=== PATIENT | female | born 1975 | race Caucasian/White ===

== ENCOUNTER 2025-01-26 16:30 | Inpatient (IN) | payer OTHER, SELFPAY ==
[2025-01-26] VITALS (57 sets, daily range): BP systolic 85–148; BP diastolic 55–93; BMI 26.9
--- NOTE | 2025-01-26 15:27 | ED.CVA ---
History of Present Illness
General
Chief Complaint: CVA/TIA Symptoms
Source: patient
Exam Limitations: none
Time Seen by Provider: 01/26/25 15:23
Nursing documentation reviewed up to this point in time: agreed with
Onset of Stroke Symptoms
Onset of symptoms known: Yes
Date of onset of symptoms: 01/26/25
Time of onset of symptoms: 14:30
History of Present Illness
History of Present Illness:
Patient with history of migraine headache, presents to ED from work, secondary to sudden onset of difficulty finding words, along with tingling sensation. Denies headache. Denies dizziness. Denies loss of sensation or weakness. Denies difficulty
with swallowing. Patient denies previous history of similar symptoms. Denies recent illness. Denies recent change in medications or diet.
Review of Systems
Review of Systems
Allergies reviewed?: Yes
All Other Systems: ROS reviewed and negative except as documented in HPI and ROS
Constitutional: Reports no symptoms
Respiratory: Reports no symptoms
Cardiac: Reports no symptoms
ABD/GI: Reports no symptoms
Musculoskeletal: Reports no symptoms
Skin: Reports no symptoms
Neurological: Reports other (Word finding difficulty)
Phy Exam
Physical Exam
Physical Exam:
Physical Exam
General: mild distress, not acutely ill. afebrile
Head: nc/at. eomi
Neck: supple. no meningeal signs.
Heart: s1/s2 regular rate and rhythm, no murmur.
Lungs: no acute respiratory distress. clear bilaterally
Abdomen: normal bowel sounds. not tender.
Neuro: alert and oriented x 3. no focal sensory/motor deficit. clear speech, but delayed
Skin: no rash
Psychiatric: well kept. interactive and cooperative
Extremities: no edema.
Course
Orders/Labs/Results
Orders:
Orders
01/26/25 15:14
CT HEAD STROKE ALERT W/o Cont Urgent
Comment:
Reason For Exam: expressive asphasia
CT HEAD/NECK ANG STROKE ALERT Urgent
Comment:
Reason For Exam: expressive asphasia
01/26/25 15:23
Electrocardiogram (*1) Urgent
Reason for Study: TIA/Stroke
EKG- Treatment ONCE
01/26/25 15:24
NEUROLOGY CONSULT Urgent
Consulting Provider: Rolf Draper
Was physician already notified: Yes
Reason for consult: expressive aphasia
01/26/25 15:25
Tenecteplase [Tnkase] 20 mg Syringe [Syringe Non-Pump] 0 ml IV NOW
01/26/25 15:41
Complete Blood Count/With Diff Urgent
Comprehensive Metabolic Panel Urgent
Creatine Phosphokinase Urgent
Glycohemoglobin (HgbA1c) Urgent
Magnesium Urgent
TSH Urgent
01/26/25 15:58
Admit/Transfer Patient As Directed
Co-Sign Provider:
Level of Care: Inpatient admission
Assign to:: ICU
Physician / Group: Luis Antonio
Diagnosis: Expressive Aphasia
Reason for Hospitalization: TNK
Expected length of stay greater than two midnights?: Yes
ELOS- Estimated Length of Stay in days: 3
I certify the patient meets the requirements for IP care: Yes
01/26/25 15:59
Code Status As Directed
Resuscitation Status: Full Code
01/26/25 16:02
CR Chest - 2 Views Urgent
Comment:
Reason For Exam: stroke/TIA
01/26/25 16:08
Lorazepam [Ativan] 0.5 mg IV NOW STA
01/26/25 16:17
Add On- LAB Urgent
Tests Added?: CPK
01/26/25 16:32
Acetaminophen [Tylenol] 650 mg PO Q4HPRN PRN
01/26/25 16:32
Echo 2D MMode Color/Doppler Routine
Reason for Study: stroke/TIA
Electrocardiogram (*1) Routine
Reason for Study: TIA/Stroke
Case Management Consult Once
Case Management Consult: Discharge Planning
DIETARY IP CONSULT Routine
Reason for Consult: stroke/TIA
Fruit Thinner Consult Routine
Consulting Provider: Joie Cordova
Was physician already notified: Yes
Captain/Check Airman Urgent
MR Brain Without Contrast Routine
Comment: complete 24 hrs post tenecteplase administration
Reason For Exam: possible stroke, status post tenecteplase
Recent pill cam endoscopy?: No
Hemetest Stools As Directed
Comment: hemoccult all stools if patient received tenecteplase
NIH Stroke Scale As Directed
Directions: Other
Comment: NIH stroke Scale to be completed prior to thrombolytic administration, then every 1 hour for 2
hours, then every shift and with change in condition and/or mental status.
Neurological Checks As Directed
Frequency: Per unit guidelines
Additional Instructions:: after start of thrombolytic therapy:
q15min x 2 hrs, q30min x 6 hrs, q1h x 16 hrs, q4h x 24 hrs, then every shift and
with any changes.
Notify MD As Directed
Notify physician if: - Any deterioration, change in neurological status, development of severe headache,
nausea and vomiting, or with any signs of bleeding. (see guidelines for suspected
intracerebral hemorrhage).
- If intracranial hemorrhage is suspected or confirmed by imaging, anticipate need for
osmotic diuretic to maintain euvolemia.
Notify MD As Directed
Notify physician if: Glucose less than 70 or greater than 180.
Anticipate corrective insulin orders.
Notify MD As Directed
Notify physician if: unable to obtain MRI of head within 22-32 hours of tenecteplase administration
- contact Neurology for order for CT of head without contrast
Patient Education As Directed
Type: Stroke education packet
Comment: provide to patient and family
Pneumatic Compression Sleeves As Directed
Type: Knee high
Precautions As Directed
Type of Precautions: Bleeding
Comment: post Bleeding Precaution sign at bedside (if patient received tenecteplase)
Swallow Screening CVA/TIA ONLY As Directed
Comment: NPO until swallow screening completed
If patient FAILS swallow screening:: NPO and Speech consult and aspiration precautions
If patient PASSES swallow screening, diet:: Regular
Thrombolytic Precautions As Directed
Thrombolytic Precautions:: [place] bleeding precautions. Minimize invasive procedures and venipunctures,
avoid IM injections and over-handling patient, and check all puncture sites for
bleeding. Assess the patient and notify provider for signs and symptoms of
internal or serious bleeding, such as changes in vital signs or evidence of blood
in the urine or stool.
Additional instructions: Hemocult all stools.
Apply direct pressure or pressure dressing to any compressible puncture sites.
No ABG sampling or Boss insertion after Tenecteplase administration for 24 hours,
unless directed by the Neurologist/Attending.
Vital Signs As Directed
Frequency: q15m
Call for:: BP greater than 180/105 mmHg or less than 100/60 mmHg
Additional Instructions:: after start of thrombolytic therapy:
q15min x 2 hrs, q30min x 6 hrs, q1h x 16 hrs, q4h x 24 hrs, then every shift and
with any changes.
Physiatry Consult Routine
Consulting Provider: Ho Sebastian
Was physician already notified: Yes
Reason for consult: stroke/TIA
Speech Therapy Eval & Treat Routine
DX Deep Vein Thrombosis Video Routine
01/27/25 06:00
Basic Metabolic Panel IN AM
Cardiovascular Evaluation IN AM
Complete Blood Count/No Diff IN AM
Glycohemoglobin (HgbA1c) IN AM
PTT IN AM
Prothrombin Time IN AM
01/27/25 15:59
Ot Eval And Treat Routine
Pt Eval And Treat Routine
Activity Level: Out of Bed-Early Mobility
Abnormal Lab Results
01/26/25 01/26/25
15:37 15:41
RBC 4.13 L 10^6/uL
(4.20-5.40)
Hct 35.9 L %
(37.0-47.0)
Glucose 107 H mg/dl
(70-99)
POC Glucose 131 H mg/dl
(70-99)
01/26/25 15:41
01/26/25 15:41
Vital Signs
Initial and Last Documented VS:
Initial Vital Signs
Pulse Ox
98
01/26/25 15:25
Last Documented Vital Signs
Temp Pulse Resp BP Pulse Ox
98.1 F 67 16 114/82 95
01/26/25 16:31 01/26/25 17:13 01/26/25 17:13 01/26/25 17:13 01/26/25 16:45
MDM/Problems Addressed
MDM/Problems Addressed:
Stroke alert activated prehospital. Patient evaluated immediately upon arrival by myself along with on-call neurology, Dr. Draper.
CT head: NAD. After discussion with patient, decision made to administer TNK in ED. Bleed risk discussed with patient by . Patient will be admitted for further evaluation and treatment.
Critical care alert activated.
Critical care statement: A total of 40 minutes of critical care time was provided for this patient. This includes management of unstable vital signs, evaluation of the patient at bedside, reviewing the patient's pertinent medical records, discussion
with consultants, review of old EKGs and review of pertinent medical records. This time with separate from time utilized to perform the aforementioned documented procedures
*EKG
Interpreted by ED Provider?: Yes
EKG Intrepretation Date: 01/26/25
Heart Rate: 91
Rate: normal
Rhythm: sinus
[place]: normal axis
*Critical Care Note
Total Time (30-74mins, 75-104mins- exclusive of procedures): 40 min
ED Attending Note
-
Portions of this chart may have been created with voice recognition software.� Occasional wrong word or��sound alike� substitutions may have occurred due to the inherent limitations of voice recognition software.
Discharge Plan
Departure
Patient Disposition: Admit
Date of Disposition: 01/26/25
Time of Disposition: 15:30
Admit to: ICU
Presentation/result/management discussed w/ accepting MD/DO: Hospitalist
Discharge Problem:
Expressive aphasia
Interventions
Interventions:
*Risk Screen - Suicide Last Done: 01/26/25 15:25
*General Assessment Last Done: 01/26/25 15:25
*Neglect/Abuse Screening Last Done: 01/26/25 15:25
*ED- Fall Risk Assessment Last Done: 01/26/25 15:25
*ED COVID-19 Vaccine History Last Done: 01/26/25 15:25
*Nursing Disposition Last Done: 01/26/25 16:15
ED- Pulmonary Assessment Last Done: 01/26/25 15:25
ED- Neurological Assessment Last Done: 01/26/25 15:25
ED- Cardiac Assessment Last Done: 01/26/25 15:25
ED Swallowing Screen Last Done: 01/26/25 15:25
Discharge Date and Time
Discharge Date/Time: 01/26/25 16:17
--- NOTE | 2025-01-26 15:29 | HPS.HSE ---
Family Physician
-
Family Physician:
Chief Complaint
-
Expressive Aphasia
History of Present Illness
Patient is a 49 y/o female past medical history of migraine headaches who presents with expressive aphasia and lower extremity muscle spasms. Patient was at work trying to tell a coworker about something that was under the table but noticed that
she could not think of the words. She reports bilateral lower extremity muscle spasms what started shortly after the aphasia. EMS was called, and patient arrived as a pre-hospital stroke alert. Patient was taken directly to CT scan and evaluated
Neurology who recommended TNK. Patient will be admitted to the ICU.
Medical History
Past Medical History
Past Medical History: Reports Other
Additional Past Medical History:
Migraine Headache
Past Surgical History: Reports None
Social History
Tobacco: Non-smoker
Alcohol: Occasional
Family History
Family History: Not pertinent
Allergies / Home Medications
Allergies reflects when Allergies were last updated in scroll kit.
Home Medications with original date entered in scroll kit
Allergy/Medication List:
Allergies
Allergy/AdvReac Type Severity Reaction Status Date / Time
Sulfa (Sulfonamide Allergy Rash Verified 01/26/25 15:15
Antibiotics)
Tetracyclines Allergy Rash Verified 01/26/25 15:15
Home Medications
No Meds [No Current Medications] 01/26/25
Review of Systems
-
A 12 point ROS was completed and negative except as noted: Yes
Constitutional: Denies Fever or Chills
EENT: Denies Sore Throat
Respiratory: Denies Cough or Trouble Breathing
Cardiac: Denies Chest Pain or Palpitations
Physical Exam
Vital Signs
Selected Entries
01/26/25
15:32 01/26/25
16:13
Temp 98.1 F
Pulse 75
Resp Rate 16
Blood pressure 130/76
SaO2 98
Physical Exam
General: Well Developed and Well Nourished
HEENT: Anicteric and Moist mucous membranes
Respiratory: Clear and Non Labored Respirations
Cardiac: S1/S2 and Regular Rhythm
GI: Soft and Non Tender
Rectal: Deferred by Provider
Musculoskeletal: No Clubbing, No Cyanosis and No Edema
Skin: Warm and Dry
Neuro: Awake, Alert, Oriented and Other (Speech is slow; Bilateral Lower Extremities extended and rigid with inward pointing feet)
Psych: Anxious
Laboratory Results
-
Laboratory Tests
01/26/25
15:41
WBC 6.4
Hgb 12.6
Hct 35.9 L
Plt Count 261
Sodium 137
Potassium 4.1
Chloride 105
Carbon Dioxide 24
BUN 14
Creatinine 0.7
Glucose 107 H
Magnesium 2.0
Data Reviewed
-
CT Scan: Report Reviewed by me
Lab Data: Labs Reviewed by me
Impression/Plan
-
Expressive Aphasia
-Patient evaluated in ED by Neurology who recommended TNK
-Patient will be admitted to ICU for close monitoring and frequent neuro-checks post- TNK
-Check Brain MRI 24 hours post-TNK
-Check HgbA1c and Lipid Panel
-Check Echo
-PT/OT evals 24 hours post- TNK
Muscle Spasms and possible Decorticate Positioning of Lower Extremities - Unclear Etiology
-Electrolytes within normal range
-Possibly related to acute stroke
DVT proph: SCDs
Code Status: Full Code
--- NOTE | 2025-01-26 15:35 | CON.INTV ---
Consultation
Consultation Request
Date/Time Consultation Requested: 01/26/2025
Date/Time Consultation Performed: 01/26/2025
Medical History
-
Chief Complaint: CVA s/p TNK
History of Present Illness:
Ms. Lakshmi Lassiter is a 49yo F pmh migraine headaches admitted for CVA. Presented to ED from work with sudden onset of difficulty finding words. Per her boss, pt was dyspneic prior to ambulance arrival. Now, pt reports a headache behind the R
eye, feels worse than prior migraines. +dysphagia with water +legs feel 'weird' and spasm. +weakness + tingling in R foot. No falls/LOC, no change in vision, no CP, no N/V/D
Past Medical History
Past Medical History: Other (migraines)
Past Surgical History: Gynecological ()
Social History
Tobacco: Non-smoker
Alcohol: Occasional (1-2x/wk)
Drug: None
Personal: Partner
Living: With Family (2 daughters)
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
Family History
Family History: Other (CVA in grandparents)
Allergies / Home Medications
Allergies
Allergy/AdvReac Type Severity Reaction Status Date / Time
Sulfa (Sulfonamide Allergy Rash Verified 01/26/25 15:15
Antibiotics)
Tetracyclines Allergy Rash Verified 01/26/25 15:15
Review of Systems
-
History Source: Patient and Other (boss)
Constitutional: No Symptoms
Respiratory: Trouble Breathing
Cardiac: No Symptoms
Abdomen/GI: No Symptoms
: No Symptoms
Musculoskeletal: Muscle Stiffness (b/l legs spasming)
Skin: No Symptoms
Neuro: Headache (behind R eye), Weakness and Numbness (R foot)
Endocrine: No Symptoms
Hematologic/Lymphatic: No Symptoms
Vitals / Labs / Diagnostic Testing
Diagnostic Testing:
Head CT - no acute intracranial abnormalities
Head/neck CTA - no acute intracranial abnormality
Physical Exam
-
HEENT: Normocephalic, Anicteric and Moist Mucous Membranes
Cardiovascular: S1/S2 and Regular Rhythm
Respiratory: Clear
GI: Soft, Non Distended, Flat and Normal Bowel Sounds
Neurology: Awake and AO x 3
Skin: Warm, Dry and Good Color
General: Other (distressed)
Exam:
Neurological:
CN - facial droop on R, no nystagmus
Reflexes
R brachioradialis 2+
L brachioradialis deferred due to IV line
R patellar 0
L patellar +2
R achilles +2
L achilles +2
(-) babinski b/l
Muscle strength
b/l biceps +3
b/l triceps +3
b/l hip flexors +2
b/l plantarflexion +1
b/l dorsiflexion +1
Assessment
-
Pt is a 49yo F pmh migraines admitted for CVA sx.
Neuro
- hx migraines, does not take medicine for
- rass goal 0, at 0
- denies pain at this time, no indication for pain management
- PT/OT
- ASA/plavix
- q1h neuro checks
- repeat brain imaging at 24h
Cardiovascular
- no hx cardiac dz
- ECG NSR
- no prior echo - obtain echo w bubble study
Respiratory
- no hx respiratory dz
- on room air
- Not currently dyspneic
- CXR pending
GI
- no hx GI dz
- LFTs WNL
- lipids pending
- speech and swallow
Renal
- no hx dz
- Cr WNL
ID
- no infectious process at this time
Heme/onc
- no hx dz
- TNK at 15:43
- DVT ppx: SCDs, lovenox
Endocrine
- elevated glucose
- HbA1c, TSH pending
[2025-01-26 15:39] LABS: Glucose - Point of Care 131 mg/dl (70-99)
[2025-01-26] MEDS: TNKASE 4 MG IV (15:42)
--- NOTE | 2025-01-26 15:50 | CON.NEURO ---
Neuro Assessment/Plan
Assessment
Patient presents with mild aphasia, NIHSS 1, which could be a stroke or a new symptom of her migraine aura
as these symptoms would be disabling, we discussed and treated her with TNK
Plan
Admit to MICU for 24 hours of frequent neurochecks.�
neurochecks q1, Frequent vital signs Q15min x 2hrs, then Q30min x 6hrs, then Q1H x 16hrs until stable from the start of TNK.�
�tele, accuchecks/ISS. Repeat Head CT in 24 hours
Blood pressure goals: <180/105 and MAP 80-100� in the acute period.� If BP elevated for 2 readings, preferred agents include IV labetalol or nicardipine.� Vasopressors as necessary to maintain MAP and CPP.�
Glucose goals: Maintain euglycemia using sliding scale insulin. If glucose >180 for two consecutive readings, please use MICU insulin protocol.�
Temperature goals: maintain normothermia�
MRI brain without contrast, ECHO with bubble.�
Consultation
Order
Date of Consultation: 01/26/25
Requesting Provider: Oneil Delgado
Reason for Consult: stroke alert
Subjective/Objective
Subjective Data
Date of Service: January 26, 2025
49 year old woman with no medical history, presents from work as a stroke alert. History of migraines, with aura consisting of paresthesias in both legs; presents from work with sudden onset of paresthesias in both legs, and aphasia, with word
finding difficulties taking ~30 seconds. no focal weakness or numbness, she has never had aphasia with migraine auras before
Objective Data
Vital Signs
Temp Pulse Resp BP Pulse Ox
36.7 C 83 16 148/70 98
01/26/25 15:32 01/26/25 15:32 01/26/25 15:32 01/26/25 15:32 01/26/25 15:32
Patient Allergies
Sulfa (Sulfonamide Antibiotics) Allergy (Verified 04/09/25 15:15)
Rash
Tetracyclines Allergy (Verified 01/26/25 15:15)
Rash
CVA Assessment
Onset of Stroke Symptoms
Onset of symptoms known: Yes
Date of onset of symptoms: 01/26/25
Time of onset of symptoms: 14:35
NIH Stroke Score
Level of Consciousness: 0 - Alert
LOC Questions: 0-Answers both correctly
LOC Commands: 0-Performs both correctly
Best Horizontal Gaze: 0-Normal
Visual [place]: 0=Normal, no visual loss
Facial Palsy: 0=Normal, symmetrical
Motor - Right Arm: 0=No drift 10 seconds
Motor - Left Arm: 0=No drift 10 seconds
Motor - Right Le-No drift 5 seconds
Motor - Left Le-No drift 5 seconds
Limb Ataxia: 0-Absent
Sensation: 0-Normal
Best Language: 1-Mild aphasia
Dysarthria: 0-Normal
Extinction and Inattention: 0-No abnormality
Total Score:: 1
Physical Exam
-
AAOx3, speech clear, language with mild deficits/delays in reading, naming, repetition.
VFF, EOMI, face symmetric
full strength b/l UE LE
sensation intact to touch/temp
Medications
-
Active Medications
Generic Name Dose Route Start Last Admin
Trade Name Freq PRN Reason Stop Dose Admin
Tenecteplase 20 mg/ Device 4 mls @ 2,880 mls/hr 01/26/25 15:25
IV 01/26/25 15:26
NOW STA
Protocol
[2025-01-26 15:53] LABS: % Basophils 0.5 % (0-2); % Eosinophils 1.3 % (0-6); % Immature Granulocytes 0.5 % (0-0.5); % Lymphocytes 26.8 % (20.5-51.1); % Monocytes 7.2 % (1.7-9.3); % Neutrophils 63.7 % (42.2-75.2); Absolute Eosinophils 0.1 10^3/uL (0-0.7); Absolute Lymphocytes 1.7 10^3/uL (1.2-3.4); Absolute Monocytes 0.5 10^3/uL (0.1-0.6); Absolute Neutrophils 4.1 10^3/uL (1.4-6.5); Hematocrit 35.9 % (37.0-47.0); Hemoglobin 12.6 g/dL (12.0-16.0); Mean Corp Hgb Conc. 35.1 g/dL (33.0-37.0); Mean Corpuscular Hgb 30.5 pg (27.0-31.0); Mean Corpuscular Volume 86.9 fL (81.0-99.0); Nucleated Red Blood Cells % 0 %; Platelet Count 261 10^3/uL (130-400); Red Blood Cell Count 4.13 10^6/uL (4.20-5.40); Red Cell Dist. Width 12.9 % (11.5-14.5); White Blood Cell Count 6.4 10^3/uL (4.8-10.8)
[2025-01-26 16:09] LABS: ALT (SGPT) 22 U/L (0-35); AST (SGOT) 25 U/L (14-36); Albumin 3.8 g/dl (3.5-5.0); Alkaline Phosphatase 69 U/L (38-126); Blood Urea Nitrogen 14 mg/dl (7-17); Calcium 8.8 mg/dl (8.4-10.2); Carbon Dioxide 24 mmol/L (22-30); Chloride 105 mmol/L (98-107); Glucose 107 mg/dl (70-99); Potassium 4.1 mmol/L (3.5-5.1); Sodium 137 mmol/L (135-145); Total Bilirubin 0.4 mg/dl (0.2-1.3); Total Protein 6.3 g/dl (6.3-8.2); eGFR > 60.00
[2025-01-26] MEDS: ATIVAN 0.5 MG IV (16:11)
--- NOTE | 2025-01-26 16:16 | W.PN.UPDATE ---
Update Note
Progress Note Update
This is an addendum to the H&P written by Rhonda Godinez on 01/26/2025. Patient seen and examined independently with PA.
49-year-old female past medical history of migraines, presenting with sudden onset of word finding difficulty, bilateral muscle spasms in the legs starting at 2:30 PM today.
Vital signs normal. On examination she has some difficulty speaking which is improved as well as extended rigid lower extremities with inwardly pointed feet. Possibly decorticate posturing. Upper extremity spared.
CBC normal. BMP pending.
CT head shows no acute abnormality. CTA head and neck shows no acute abnormality.
There is concern for acute CVA so TNK was given.
Check MRI brain. Check A1c and lipid panel. Check echocardiogram. Speech and swallow evaluation. PT/OT. Neurochecks per protocol. Neurology following.
Unclear etiology of muscle spasms and possible deocorticate positioning of legs. Check electrolytes and TSH, CK.
[2025-01-26 16:37] LABS: Creatine Phosphokinase 73 U/L (30-135)
[2025-01-26 16:39] LABS: TSH 1.87 uIU/ml (0.47-4.68)
--- NOTE | 2025-01-26 17:45 | PTCARENOTE ---
Pt arrived to Rm [id number] via stretcher from ED at 1620. Pt awake and following commands appropriately. Speech slow and mild expressive aphasia/word finding difficulty noted. Pt denies c/o pain. No SOB. Pt on RA w/ POX 97%. Pt's bilateral LE noted to be
stiff w/ toes extended and slightly internally rotated. Pt w/ limited ROM to LE which pt reports is new for her 'They feel maybe like they are cramping' NIHSS assessment completed w/ ED RN. No IVF infusing at time of arrival. Pt expressed need to
void and assisted onto bedpan. Physical assessment and admission questions completed. Orientation provided to pt re: surroundings,use of call adames, fall precautions and plan of care. Friend and pt's significant other in room to visit- updated and
questions answered. Call adames w/in pt reach and safe environment maintained.
--- NOTE | 2025-01-26 19:59 | PTCARENOTE ---
Pt received start of shift, HR SR on telemetry. NIH assessment completed with outgoing RN, NIH 4. Slight expressive aphasia, b/l legs weak, ataxia present in L UE. B/l feet slightly internally rotated. Pt AAOx3. POX 96% RA. Significant other in
room. Updated pt on plan of care, pt agreeable. Call adames within reach.
[2025-01-26] MEDS: NSS 1000 IV (23:12)
[2025-01-27] VITALS (47 sets, daily range): BP systolic 96–129; BP diastolic 53–94; BMI 27.2
--- NOTE | 2025-01-27 01:18 | PTCARENOTE ---
Pt reassessed. NIH 4. B/l LE able to withstand moderate resistance now, continues to drift <5 seconds. 1L bolus to help maintain pressures.
[2025-01-27] MEDS: NSS 1000 IV ×2 (03:59→04:44)
--- NOTE | 2025-01-27 04:00 | PTCARENOTE ---
Spoke with ICU DIE REPAIRER TRIMMER DIES regarding pt BPs, 1L bolus NSS and 100mL/hr gtt ordered and administered. Assessment otherwise unchanged
[2025-01-27 04:03] LABS: Hematocrit 36.3 % (37.0-47.0); Hemoglobin 12.5 g/dL (12.0-16.0); Mean Corp Hgb Conc. 34.4 g/dL (33.0-37.0); Mean Corpuscular Hgb 29.9 pg (27.0-31.0); Mean Corpuscular Volume 86.8 fL (81.0-99.0); Mean Platelet Volume 8.7 fL (7.4-10.4); Platelet Count 250 10^3/uL (130-400); Red Blood Cell Count 4.18 10^6/uL (4.20-5.40); Red Cell Dist. Width 13.1 % (11.5-14.5); White Blood Cell Count 6.8 10^3/uL (4.8-10.8)
[2025-01-27 04:22] LABS: INR 0.99; PT 13.6 Sec (11.4-14.6)
[2025-01-27 04:23] LABS: APTT 29.3 Sec (23.4-35.0)
[2025-01-27 04:45] LABS: Blood Urea Nitrogen 11 mg/dl (7-17); Carbon Dioxide 24 mmol/L (22-30); Chloride 110 mmol/L (98-107); Estimated Creatinine Clearance 109 ml/min; Glucose 109 mg/dl (70-99); HDL Cholesterol 41 mg/dl; LDL Cholesterol, Calculated 130 mg/dl; Potassium 4.2 mmol/L (3.5-5.1); Sodium 139 mmol/L (135-145); Total Cholesterol 208 mg/dl (50-199); Triglyceride 187 mg/dl (10-149); Very Low Density Lipoprotein 37 mg/dl (0-30); eGFR > 60.00
--- NOTE | 2025-01-27 07:18 | W.PN.INTV ---
Today's Communication / Plan
Recommendations
Doing well today, repeat MRI in the PM
No new complaints
PT/OT, speech evals pending
Cardiac w/u recommended
Snoring noted, will arrange OP sleep FU
Otherwise, can transfer to [facility] post MRI results, we will sign off upon transfer
Assessment
-
49-year-old female with previous history of migraines presenting to ER with complaints of muscle spasms, expressive aphasia. NIH score 4, evaluated neurology and given TNK in ER. Admitted to ICU for further management.
Suspected acute CVA status post TNK 01/26
Expressive aphasia
Possible right sided weakness, facial droop
Muscle spasms
Conditions present prior to admission
Migraines
Plan
S/p tnk for CVA
Observe overnight following administration, careful watch for signs of bleeding
Follow CBC, neurovascular checks
Neuro following
Repeat MRI 01/27
Denies prior known cardiac history
Will need w/u
ECHO obtained/pending
OP referral needed
No prior h/o lung disease
Aspiration precautions
CXR reviewed-NAD
Snoring noted, will need OP sleep study, we will arrange FU
Restart diet per protocol
GI ppx
Creat at baseline, follow UO
No signs/symptoms suspicious for infectious etiology at this time.
Will observe off antibiotics for now.
Critical Care time 45 mins -- The patient is admitted for acute critical illness for the treatment of vital organ failure and/or prevention of further life-threatening conditions. Total care includes time spent in review of history, physical exam,
medications, hemodynamic/ventilator parameters, laboratory data, imaging and discussion with house staff, pharmacy, respiratory therapy, crop or grain farmworker, and nursing.
Subjective Dataa
Subjective Data
Date of Service:
Date of Service: January 27, 2025
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
Subjective:
Doing well today, no new complaints
Feels like she is improving
Objective Data
Data Reviewed
Vital Signs / I&O / Oxygen:
Vital Signs
Temp Pulse Resp BP Pulse Ox
97.9 F 80 17 123/89 97
01/27/25 03:12 01/27/25 06:43 01/27/25 06:43 01/27/25 06:43 01/27/25 06:30
Intake and Output
01/26/25 01/27/25 01/28/25
06:59 06:59 06:59
Intake Total 2680 / 2680
Output Total 700 / 700
Balance 1979 / 1979
SaO2 97
Physical Exam
General: Comfortable and Other (NAD)
HEENT: Normocephalic, Anicteric and Moist Mucous Membranes
Cardiovascular: S1-S2 and Regular Rhythm
Respiratory: Clear and Non-Labored Respirations
GI: Soft, Non Distended and Non Tender
Neurology: Awake, Alert, Oriented and No Motor Deficits
Skin: Warm and Dry
Labs/Micro/Reports
Lab Data
01/27/25 03:56
01/27/25 03:56
Laboratory Results
01/26/25 01/27/25
21:30 03:56
PT Cancelled 13.6
INR Cancelled 0.99
APTT Cancelled 29.3
--- NOTE | 2025-01-27 07:35 | PTCARENOTE ---
Addendum entered by Paola Barrett RN 01/27/25 07:43:
patient c/o 'slight headache' behind her eyes. states it has not changed wince admission. declines any prn medications. states her feet have intermittent cramping sensation at times and feel stiff
Original Note:
report received, assessments per work list. NIH handoff completed with off going RN. slow speech, slight left sided weakness, ataxia and 'dull tingling ' sensation left leg. alert and orientedX3. word finding difficulty not noted at this time.
monitor nsr. lungs clear. abdomen soft. no edema. no signs bleeding. call adames in reach. reviewed plan of care.
--- NOTE | 2025-01-27 08:44 | W.PN.INTV ---
Today's Communication / Plan
Recommendations
- stop IV NSS
- MRI brain today
Assessment
-
Pt is a 49yo F pmh migraines admitted for CVA sx s/p TNK @15:43 on 01/26.
Neuro
- hx migraines, does not take medicine for
- rass goal 0, at 0
- acetaminophen as needed for pain
- PT/OT/ST
- physiatry consult
- neurology consulted
- brain MRI after 15:43 today
Cardiovascular
- no hx cardiac dz
- ECG NSR
- no prior echo - echo w bubble study pending
Respiratory
- no hx respiratory dz
- on room air
- Not currently dyspneic
- CXR no acute cardiopulmonary process
GI
- no hx GI dz
- LFTs WNL
- lipids elevated. ASCVD risk score 1.4% risk of cardiovascular event - no indication to start a statin at this time
- diet: regular
- stop IV NSS as pt is tolerating PO intake
- speech and swallow
Renal
- no hx dz
- Cr WNL
ID
- no infectious process at this time
Heme/onc
- no hx dz
- TNK at 15:43
- DVT ppx: SCDs
Endocrine
- elevated glucose
- HbA1c 5.5%, wnl
- TSH 1.87, wnl
Subjective Dataa
Subjective Data
Date of Service:
Date of Service: January 27, 2025
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
Subjective:
Pt reports her speech has returned to normal. Her ROMO is improving, declines pain medicine. Able to tolerate eating and drinking.
Review of Systems
General: Satisfactory Appetite
Neuro: Headache
Objective Data
Data Reviewed
Vital Signs / I&O / Oxygen:
Vital Signs
Temp Pulse Resp BP Pulse Ox
97.9 F 62 14 112/63 96
01/27/25 08:25 01/27/25 08:03 01/27/25 08:03 01/27/25 08:03 01/27/25 07:45
Intake and Output
01/26/25 01/27/25 01/28/25
06:59 06:59 06:59
Intake Total 2680 / 2780 440 / 440
Output Total 700 / 700 600 / 600
Balance 1979 / 2079 -160 / -160
SaO2 96
Physical Exam
General: Comfortable and Good Appetite
HEENT: Normocephalic, Anicteric and Moist Mucous Membranes
Cardiovascular: S1-S2 and Regular Rhythm
Respiratory: Clear and Non-Labored Respirations
GI: Soft, Non Distended, Flat, Non Tender and Normal Bowel Sounds
Neurology: Awake, AO x 3 and Other (b/l patellar reflexes 0, b/l hip flexor strength +2)
Skin: Warm and Dry
Labs/Micro/Reports
Lab Data
01/27/25 03:56
01/27/25 03:56
Laboratory Results
01/26/25 01/27/25
21:30 03:56
PT Cancelled 13.6
INR Cancelled 0.99
APTT Cancelled 29.3
--- NOTE | 2025-01-27 09:00 | PTOTSP ---
Speech Language Pathology
Pt seen for speech/language evaluations. Pt with mild dysarthria with slow rate of speech with imprecision noted. Language evaluated via the Quick Aphasia Battery (QAB), form 1. Pt with an overall score of 9.55, indicative of skills WNL. Pt
scored WNL on all subtests except for repetition, which scored as mild. When naming 'octopus' during evaluation, pt initially stated 'ocapus' and self-corrected. Suspect a very slight expressive aphasia.
Pt also seen for clinical bedside swallow evaluation. P.O. trials of regular solids and thin liquids provided. Pt reported increased ease of chewing on R vs L, but adequate mastication, bolus formation, and A-P transit noted with no oral
residue/pocketing. No overt signs of aspiration.
Recommend:
(1) Regular solids/thin liquids
(2) Pending MRI results and tolerance of P.O., will consider VSE as indicated
(3) Aspiration precautions: chew food thoroughly, check for pocketing, sit upright, slow rate
(4) Meds as tolerated
(5) INTERMEDIATE CARD TENDER to continue to follow for dysarthria tx, aphasia tx, and dysphagia
[2025-01-27 09:02] LABS: Glycohemoglobin (HgbA1c) 5.5 % (4.0-5.6)
--- NOTE | 2025-01-27 09:50 | W.PN.HOSP.TC ---
Today's Communication/Plan
-
see bold
Assessment / Plan
Assessment / Plan
HPI: 49 y/o female past medical history of migraine headaches who presents with expressive aphasia and lower extremity muscle spasms. Patient was at work trying to tell a coworker about something that was under the table but noticed that she could
not think of the words. She reports bilateral lower extremity muscle spasms what started shortly after the aphasia. EMS was called, and patient arrived as a pre-hospital stroke alert. Patient was taken directly to CT scan and evaluated Neurology
who recommended TNK.
A/P:
Suspected Acute CVA
Expressive Aphasia
-S/p TNK 01/26
-Brain MRI 01/27 negative, echo normal
-LDL 130, hemoglobin A1c 5.5
-Start atorvastatin 40 mg at bedtime
-Likely can be transferred out of the ICU 24 hours post TNK
-PT/OT/SPL
Muscle Spasms and possible Decorticate Positioning of Lower Extremities - Unclear Etiology
-Electrolytes within normal range
-Possibly related to acute stroke
DVT proph: SCDs
Code Status: Full Code
Total time spent to see the patient on the floor, examine the patient, review data and lab results, discuss treatment plan with patient, nursing staff around 45 minutes.
Physical Exam
General: No acute distress
HEENT: Normocephalic, Atraumatic, EOMI, MMM
Respiratory: Clear to Auscultation bilaterally
Cardiac: Normal S1/S2, Regular Rate and Rhythm
GI: Soft, Nontender, Nondistended, Normal Bowel Sounds
Extremities: No Clubbing, Cyanosis, or Edema
Neuro: Nonfocal/Grossly Intact
Anticipated Discharge: Within 24 hours
Subjective/Interval History
-
Date of Service: January 27, 2025
Patient reports feeling that her left leg is not completely normal. Her speech has pretty much normalized. No headache, no fever, no vomiting.
Objective Data
-
Labs:
Laboratory Results
01/26/25 01/27/25
21:30 03:56
WBC 6.8
Hgb 12.5
Hct 36.3 L
Plt Count 250
PT Cancelled 13.6
INR Cancelled 0.99
APTT Cancelled 29.3
Sodium 139
Potassium 4.2
Chloride 110 H
Carbon Dioxide 24
BUN 11
Creatinine 0.6
Glucose 109 H
Calcium 9.0
Vital Signs:
Vital Signs
Temp Pulse Resp BP Pulse Ox
97.9 F 62 14 112/63 96
01/27/25 08:25 01/27/25 08:03 01/27/25 08:03 01/27/25 08:03 01/27/25 07:45
I&O
01/26/25 01/27/25 01/28/25
06:59 06:59 06:59
Intake Total 2680 / 2780 440 / 440
Output Total 700 / 700 600 / 600
Balance 1979 -160 / -160
--- NOTE | 2025-01-27 12:21 | PTCARENOTE ---
patient reassessed. ataxia left leg/arm persists, numbness and 'heavy' feeling left side unchanged per patient. no signs aspiration. able to transfer with assist of one and rolling walker to bedside commode. voiding large amounts. tolerating diet,
fluids capped per order. call to MRI, to have MRI later today. call adames in reach, family at bedside
--- NOTE | 2025-01-27 14:36 | CM ---
CM following re: discharge planning.
Reviewed pt's chart, met with pt.
Pt is a 49 year old female, admitted with primary dx ofd CVA/TIA symptoms. MRI today.
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
PT, OT, ST will evaluate the pt to determine a level of care at discharge and CM will follow up with recommendations.
PCP: [facility]
Pharmacy: [facility].
D/C plan: uncertain at this time and will depend on pt's progress.
CM will follow with discharge plan updates hospitalization progresses
--- NOTE | 2025-01-27 16:37 | PTCARENOTE ---
reassessed. taken and returned from MRI without issue
[2025-01-27] MEDS: LOVENOX 40 MG SC (18:07)
[2025-01-27] MEDS: LIPITOR 40 MG PO (18:07)
--- NOTE | 2025-01-27 23:13 | PTCARENOTE ---
Assumed care of pt at 1900. Pt is A/O x4, pleasant and cooperative with care. Neurocheck/NIHSS done at start of shift, see flowsheet for details. Pt has left sided weakness and decreased sensation. Able to stand and pivot to BSC with standby
assistance. No c/o pain. SR 60s on monitor. See nursing shift assessment flowsheet for full physical assessment details. Pt is telemetry level of care.
[2025-01-28] VITALS: BP 97/57
[2025-01-28 04:00] VITALS: BP 99/71
--- NOTE | 2025-01-28 07:42 | PTCARENOTE ---
Addendum entered by Ale Davidson RN 01/28/25 07:46:
Also noted decreased sensation on L foot during NIH- see flow sheet.
Original Note:
Received pt @ change of shift. Pt. AAOx3, denies pain. NIH- 2 for L sided weakness- see flow sheet. Speech clear/approp. PERRLA 3 mm/brisk. Assessment per charting- see flow sheet. Pt. instructed on how to report care concerns and call rosangela poole in
reach.
--- NOTE | 2025-01-28 08:53 | W.PN.HOSP.TC ---
Today's Communication/Plan
-
Cleared by neurology for discharge today
Assessment / Plan
Assessment / Plan
HPI: 49 y/o female past medical history of migraine headaches who presents with expressive aphasia and lower extremity muscle spasms. Patient was at work trying to tell a coworker about something that was under the table but noticed that she could
not think of the words. She reports bilateral lower extremity muscle spasms what started shortly after the aphasia. EMS was called, and patient arrived as a pre-hospital stroke alert. Patient was taken directly to CT scan and evaluated Neurology
who recommended TNK.
A/P:
Migraine with an aura
Acute CVA ruled out
Expressive Aphasia
Persistent left-sided weakness
-S/p TNK 01/26
-Brain MRI 01/27 negative, echo normal
-LDL 130, hemoglobin A1c 5.5
-Patient's left-sided weakness resolved after neurology performed SPG block (3 cc syringe, plastic iv catheter, spray 0.75 cc of 0.5% bupivacaine each nostril)
-This suggest patient's neurologic symptoms are due to migraine with an aura
-Cleared by neurology for discharge, follow-up Lakshmi malin in the office for migraine management
Hyperlipidemia
-Started atorvastatin 40 mg at bedtime
Probable obstructive sleep apnea
-Outpatient follow-up with pulm
Muscle Spasms and possible Decorticate Positioning of Lower Extremities
-Resolved
DVT proph: SCDs
Code Status: Full Code
Physical Exam
General: No acute distress
HEENT: Normocephalic, Atraumatic, EOMI, MMM
Respiratory: Clear to Auscultation bilaterally
Cardiac: Normal S1/S2, Regular Rate and Rhythm
GI: Soft, Nontender, Nondistended, Normal Bowel Sounds
Extremities: No Clubbing, Cyanosis, or Edema
Neuro: Nonfocal/Grossly Intact
Anticipated Discharge: Today
Subjective/Interval History
-
Date of Service: January 28, 2025
Patient reports feeling much better with resolution of her left-sided weakness after SPG block (3 cc syringe, plastic iv catheter, spray 0.75 cc of 0.5% bupivacaine each nostril). Denies chest pain, denies shortness of breath. No fever, no
vomiting.
Objective Data
-
Vital Signs:
Vital Signs
Temp Pulse Resp BP Pulse Ox
98 F 61 18 99/71 97
01/28/25 07:26 01/28/25 04:00 01/27/25 15:51 01/28/25 04:00 01/28/25 07:30
I&O
01/27/25 01/28/25 01/29/25
06:59 06:59 06:59
Intake Total 2680 / 2780 1340 / 1340
Output Total 700 / 700 3675 / 3675 200 / 200
Balance 1979 / 2079 -2335 / -2335 -200 / -200
[2025-01-28 09:26] VITALS: BP 118/69
--- NOTE | 2025-01-28 10:12 | W.PN.NEURO.1 ---
Today's Communication / Plan
-
Lipitor 40
d/c home
Neuro Assessment/Plan
Assessment
Patient presents with mild aphasia, NIHSS 1, was treated with TNK
no resolution after almost 2 days, so it's not a TIA
MRI normal
questioning whether this is a migraine aura or a stroke too small to show on MRI, i performed SPG block (3 cc syringe, plastic iv catheter, spray 0.75 cc of 0.5% bupivacaine each nostril) patient left sided deficits resolved shortly after, proving
that this was actually a migraine aura in the first place and not a stroke
no need for aspirin
continue Lipitor 40 (LDL 130)
while not many neurologists perform SPG block in the office, she could certainly be prescribed viscous lidocaine and a syringe/cotton swab to do this at home
she would like to f/u with JESSI Washington in our office for migraine management
Plan
ok to DC home
outpatient Physical therapy
Subjective/Objective
Subjective Data
Date of Service: January 28, 2025
patient reports continuing left sided weakness/numbness, now almost 2 days since TNK
speech/language is back to normal
She reports that these symptoms of left sided weakness and word finding are similar to her previous acephalgic migraine auras, except that her migraine aura usually lasts ~15 mins and resolves after drinking some water; they typically occur 1/month
around her period but have increased in the past year, as she is perimenopausal.
Objective Data
Vital Signs
Temp Pulse Resp BP Pulse Ox
36.6 C 61 18 99/71 97
01/28/25 07:26 01/28/25 04:00 01/27/25 15:51 01/28/25 04:00 01/28/25 07:30
Lab Results
01/27/25 03:56
01/27/25 03:56
PT 13.6 Sec (11.4-14.6) 01/27/25 03:56
INR 0.99 01/27/25 03:56
APTT 29.3 Sec (23.4-35.0) 01/27/25 03:56
Sodium 139 mmol/L (135-145) 01/27/25 03:56
Potassium 4.2 mmol/L (3.5-5.1) 01/27/25 03:56
BUN 11 mg/dl (7-17) 01/27/25 03:56
Glucose 109 mg/dl (70-99) H 01/27/25 03:56
Calcium 9.0 mg/dl (8.4-10.2) 01/27/25 03:56
LDL Cholesterol, Calc 130 mg/dl 01/27/25 03:56
Patient Allergies
Sulfa (Sulfonamide Antibiotics) Allergy (Verified 01/26/25 15:15)
Rash
Tetracyclines Allergy (Verified 01/26/25 15:15)
Rash
Physical Exam
-
Exam AAOx3, speech clear, language intact
trace left sided weakness/numbness, not enough to get any points on NIHSS
NIHSS of 0
[2025-01-28 10:49] VITALS: BP 98/70
[2025-01-28 11:07] VITALS: BP 98/70; PULSE 74
[2025-01-28 11:09] VITALS: BP 98/70; PULSE 70
--- NOTE | 2025-01-28 11:31 | PTOTSP ---
pt currently demonstrates ability to complete simple ADLs, functional transfers, ambulation with supervision to no assistance. will defer to PT for ambulation and least restrictive device for ambulation. no acute OT needs identified at this time,
will sign off.
--- NOTE | 2025-01-28 11:47 | W.DCSUMMARY ---
Discharge Summary
Discharge Data
Date of Admission: 01/26/25
Date of Discharge: 01/28/25
-
Pending Results: No
Hospital Course
Discharge diagnosis:
Migraine with an aura
Acute stroke ruled out
Expressive aphasia
Persistent left-sided weakness
Hyperlipidemia
Snoring suspicious for obstructive sleep apnea
Muscle spasms
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
Brain MRI:
No acute intracranial abnormality noted.
Hospital course:
49-year-old female with a past medical history of migraine with an aura presented with expressive aphasia and left-sided weakness concerning for an acute stroke. She received TNK in the ER, and was monitored in the ICU according to post TNK
protocol. Brain MRI was negative for acute stroke. She continued to have persistent mild left-sided weakness. Neurology performed an SPG block (3 cc syringe, plastic iv catheter, spray 0.75 cc of 0.5% bupivacaine each nostril), which resulted in
resolution of her left sided weakness. This suggests that her symptoms were due to migraine with an aura, and acute stroke has been ruled out.
Patient was noted to be snoring, and has been referred to pulmonology outpatient for sleep study.
Patient had hyperlipidemia, and was started on atorvastatin 40 mg every afternoon.
She is medically stable and cleared by neurology for discharge. She can follow-up with her PCP in 1 week, as well as Lakshmi Martinez in the office for migraine management.
Disposition: Home self-care
Discharge planning: Required 37 minutes
Discharge Plan
-
Patient Disposition: Home (Routine Discharge)
Discharge Diagnosis/Procedures: Migraine with an aura, left-sided weakness
Condition: Good
Diet: Low Fat and Low Cholesterol
Activity: As tolerated
Driving Restrictions: As prior to admission
Activity Restrictions/Additional Instructions:
You can follow-up with pulmonology in the office for testing for sleep apnea.
Follow-up with your primary care doctor in 1 week, neurology in the office in 3-4 weeks.
Referrals:
Lakshmi Martinez CRNP [Specified Professional Personl] - in three to four weeks
Joie Cordova DO [Active] - in six weeks (sleep eval)
UNKNOWN - PT DOES,NOT KNOW [Family Provider] -
Prescriptions:
New
atorvastatin 40 mg Tablet
40 mg PO QPM Qty: 30 0RF
Discharge Orders:
Discharge Patient (As Directed); Ordered 01/28/25
Ordered By: Brian Amos
Discharge Date and Time
Discharge Date/Time: 01/28/25 12:38
Print Language: YI
--- NOTE | 2025-01-28 12:22 | PTCARENOTE ---
Discharge instructions completed w patient; pt verbalized understanding. Tele pack and IV's removed. Pt. discharged via wheelchair to home w pt.'s mother. No further needs from this RN.
--- NOTE | 2025-01-28 12:47 | CM ---
CM following re: discharge planning.
Reviewed pt's chart, met with pt.
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
PT, OT, ST evaluations noted - outpatient PT/OT/ST recommended. Pt is aware and she stated she will come to outpatient therapy if she feels she needs it.
Discharge order noted. Pt is aware and she stated her mother will transport home.
D/C plan: home with outpatient therapy. Mother to transport.
== END 2025-01-28 12:38 | disposition home or self-care (01) | DRG 103 ==
LOC: ICU 16:30
PROVIDERS: Physician Assistant Medical; ADMITTING PHYSICIAN Hospitalist; ATTENDING PHYSICIAN Family Medicine; CONSULT PHYSICIAN Psychiatry & Neurology Clinical Neurophysiology; EMERGENCY PHYSICIAN Emergency Medicine; OTHER PHYSICIAN Internal Medicine
PROC: 3E03317 Introduction of Other Thrombolytic into Peripheral Vein, Percutaneous Approach (ICD-10-PCS; 2025-01-26)
DX: G43.109 Migraine with aura, not intractable, without status migrainosus (principal); R47.01 Aphasia; R29.810 Facial weakness; E78.5 Hyperlipidemia, unspecified; R73.9 Hyperglycemia, unspecified; M62.838 Other muscle spasm; G47.33 Obstructive sleep apnea (adult) (pediatric); R29.701 NIHSS score 1; Z82.3 Family history of stroke
CPT/HCPCS: 70450; 70496; 70498; 70551; 71045; 80048; 80053; 80061; 82550; 82962; 83036; 83735; 84443; 85025; 85027; 85610; 85730; 92523; 92610; 93005; 93306; 96374; 96375; 97162; 97166; 99291; J3101; Q9967

== ENCOUNTER 2025-02-01 07:47 | Emergency (ER) | payer OTHER, SELFPAY ==
[2025-02-01 07:48] VITALS: BP 133/75
[2025-02-01 09:10] VITALS: BP 104/79
[2025-02-01 09:22] LABS: % Basophils 0.5 % (0-2); % Eosinophils 0.8 % (0-6); % Immature Granulocytes 0.2 % (0-0.5); % Lymphocytes 21.7 % (20.5-51.1); % Neutrophils 69.8 % (42.2-75.2); Absolute Eosinophils 0.1 10^3/uL (0-0.7); Absolute Lymphocytes 1.3 10^3/uL (1.2-3.4); Absolute Monocytes 0.4 10^3/uL (0.1-0.6); Absolute Neutrophils 4.3 10^3/uL (1.4-6.5); Hematocrit 40.4 % (37.0-47.0); Hemoglobin 13.8 g/dL (12.0-16.0); Mean Corp Hgb Conc. 34.2 g/dL (33.0-37.0); Mean Corpuscular Hgb 30.1 pg (27.0-31.0); Mean Corpuscular Volume 88.2 fL (81.0-99.0); Mean Platelet Volume 9.2 fL (7.4-10.4); Nucleated Red Blood Cells % 0 %; Platelet Count 268 10^3/uL (130-400); Red Blood Cell Count 4.58 10^6/uL (4.20-5.40); Red Cell Dist. Width 12.8 % (11.5-14.5); White Blood Cell Count 6.2 10^3/uL (4.8-10.8)
--- NOTE | 2025-02-01 09:22 | ED.GENMED ---
History of Present Illness
General
Chief Complaint: Weakness
Time Seen by Provider: 02/01/25 08:59
History of Present Illness
History of Present Illness:
49-year-old female with history of hyperlipidemia presenting to the emergency department for weakness. Patient notes that she was recently seen in the hospital for similar symptoms. On review of EMR, patient had been admitted to the hospital from
01/26 to 01/28, when she presented with aphasia and left-sided weakness. She was subsequently administered TNK and transferred to the ICU. Brain MRI imaging was negative. Patient with history of complex migraines. She had an SPG block, which
resolved her symptoms, so it was thought that her symptoms were secondary to a migraine with an aura. She notes that she was feeling better upon discharge, however today when she was driving to work, felt tingling in her body and generalized
weakness, however does feel more prominent on the left side. Reports a mild headache, denies any significant visual changes. Denies chest pain or difficulty breathing. Denies fever. Denies abdominal pain or GI symptoms. Denies additional acute
medical complaints
Phy Exam
Physical Exam
Physical Exam:
General: Well-appearing, no clinical signs of dehydration, nontoxic and in no acute distress
HEENT: protecting airway
Neck: appears supple
CV: Normal heart rate
Resp: No accessory muscle use, no increased work of breathing, lungs clear to auscultation bilaterally
Abd: Soft and non-distended, no tenderness to palpation
Extremities: No deformities, no swelling, no erythema
Neuro: alert, no aphasia or changes in speech. 4/5 strength to the left lower extremity comparison to right. Mild subjective decrease sensation to left upper and left lower extremity comparison to right. Sensation globally intact
: deferred
Rectal: deferred
Psych: Normal affect
Skin: Intact
Course
Orders/Labs/Results
Orders:
Orders
02/01/25 09:02
C-Reactive Protein Urgent
Comment: ADD
Complete Blood Count/With Diff Urgent
Comprehensive Metabolic Panel Urgent
Erythrocyte Sed Rate Urgent
Comment: ADD
02/01/25 09:16
0.9% Sodium Chloride 1000 ml [Nss] 1,000 ml IV BOLUS
Butalb/Acetaminophen/Caffeine [Fioricet] 1 tab PO NOW STA
Ketorolac [Toradol] 15 mg IV NOW STA
02/01/25 10:07
Add On- LAB Urgent
Tests Added?: ESR and CRP
Abnormal Lab Results
02/01/25
09:02
Glucose 100 H mg/dl
(70-99)
AST 38 H U/L
(14-36)
C-Reactive Protein 10.30 H mg/L
(0.0-10.00)
02/01/25 09:02
02/01/25 09:02
Vital Signs
Initial and Last Documented VS:
Initial Vital Signs
Temp Pulse Resp BP Pulse Ox
97.5 F 83 16 133/75 97
02/01/25 07:48 02/01/25 07:48 02/01/25 07:48 02/01/25 07:48 02/01/25 07:48
Last Documented Vital Signs
Temp Pulse Resp BP Pulse Ox
97.5 F 83 16 118/79 100
02/01/25 07:48 02/01/25 07:48 02/01/25 07:48 02/01/25 10:00 02/01/25 10:30
MDM/Problems Addressed
MDM/Problems Addressed:
49-year-old female presenting for weakness and tingling. Vital signs on arrival are normal.
On exam patient is resting comfortably, no acute distress or discomfort. Patient does have some slight decrease sensation to the left lower extremity. Without present concern for stroke or TIA given recent extensive neurologic work with negative
MRI imaging and similar presenting symptoms. Ultimately suspect again a complex migraine. Will screen with laboratory analysis, treat patient's migraine and reassess. Does note that she used to get complex migraines, treated with Fioricet. Will
try Fioricet and Toradol. Will also consult with neurology.
12:30 -patient reports that symptoms have improved. In discussion with neurology, recommending inflammatory markers. CRP is minimally elevated. Without present concern. Patient has a follow-up appointment in the next few weeks with neurology.
Neurologist here recommending to start patient on Keppra. Will provide prescription. Also for headache, recommending high-dose ibuprofen. At this time feel stable for discharge with continued diagnosis of complex migraines. Return precautions
discussed and patient verbalized understanding
*Critical Care Note
Total Time (30-74mins, 75-104mins- exclusive of procedures): Not Applicable
ED Attending Note
-
Portions of this chart may have been created with voice recognition software.� Occasional wrong word or��sound alike� substitutions may have occurred due to the inherent limitations of voice recognition software.
Discharge Plan
Departure
Patient Disposition: Home (Routine Discharge)
Date of Disposition: 02/01/25
Time of Disposition: 12:32
Patient with high blood pressure during this ER visit?: No
Condition: Good
Discharge Problem:
Migraine with aura
Instructions: Migraines (DC)
Prescriptions:
New
levetiracetam [Roweepra] 500 mg tablet
500 mg PO BID 30 Days Qty: 60 0RF
ibuprofen 600 mg tablet
600 mg PO Q8H PRN (Reason: Pain) Qty: 20 0RF
No Action
atorvastatin 40 mg Tablet
40 mg PO QPM Qty: 30 0RF
Referrals:
Familia Carney PA-C [Family Provider] -
Activity Restrictions/Additional Instructions:
You were seen in the emergency department for headache and weakness
You were given Toradol, which is a type of anti-inflammatory medication, and Fioricet with some improvement of your symptoms. Please follow-up with the neurologist as scheduled. In discussion with neurology, we are starting you on Keppra. Please
take as directed.
Please follow-up closely with your primary care physician.
Return to the emergency department for any worsening of your symptoms, or any development of chest pain, difficulty breathing, abdominal pain with persistent vomiting and inability to tolerate food or liquid by mouth (concern for dehydration),
weakness, headache or confusion, fever greater than 100.4, or any additional symptoms that are concerning to you.
Thank you for choosing [facility].
Interventions
Interventions:
*Risk Screen - Suicide Last Done: 02/01/25 07:48
*General Assessment Last Done: 02/01/25 07:48
*Neglect/Abuse Screening Last Done: 02/01/25 07:48
*ED- Fall Risk Assessment Last Done: 02/01/25 12:51
*ED COVID-19 Vaccine History Last Done: 02/01/25 12:51
*Nursing Disposition Last Done: 02/01/25 12:51
ED- Cardiac Assessment Last Done: 02/01/25 09:37
ED- Neurological Assessment Last Done: 02/01/25 09:37
ED- Pulmonary Assessment Last Done: 02/01/25 09:37
Discharge Date and Time
Discharge Date/Time: 02/01/25 12:51
Print Language: KYRGYZ
[2025-02-01] MEDS: FIORICET 1 TAB PO (09:31)
[2025-02-01] MEDS: NSS 1000 IV (09:31)
[2025-02-01] MEDS: TORADOL 15 MG IV (09:31)
[2025-02-01 09:35] LABS: ALT (SGPT) 35 U/L (0-35); AST (SGOT) 38 U/L (14-36); Albumin 4.4 g/dl (3.5-5.0); Alkaline Phosphatase 70 U/L (38-126); Blood Urea Nitrogen 11 mg/dl (7-17); Calcium 9.4 mg/dl (8.4-10.2); Carbon Dioxide 25 mmol/L (22-30); Chloride 107 mmol/L (98-107); Glucose 100 mg/dl (70-99); Potassium 4.4 mmol/L (3.5-5.1); Sodium 140 mmol/L (135-145); Total Bilirubin 0.6 mg/dl (0.2-1.3); eGFR > 60.00
[2025-02-01 10:00] VITALS: BP 118/79
[2025-02-01 10:27] LABS: Erythrocyte Sed Rate 2 mm/hour (0-20)
--- NOTE | 2025-02-01 11:00 | EDRN ---
Patient ambulatory to the restroom and back in bed resting comfortably
--- NOTE | 2025-02-01 12:00 | EDRN ---
Patient is feeling better and ready for discharge home.
== END 2025-02-01 12:51 | disposition home or self-care (01) ==
LOC: EMR 07:47
PROVIDERS: Student in an Organized Health Care Education/Training Program; EMERGENCY PHYSICIAN Student in an Organized Health Care Education/Training Program; FAMILY PHYSICIAN Physician Assistant
DX: G43.109 Migraine with aura, not intractable, without status migrainosus (principal); R53.1 Weakness; R20.2 Paresthesia of skin; Z88.1 Allergy status to other antibiotic agents; Z88.2 Allergy status to sulfonamides
CPT/HCPCS: 99284; 96374; 96361; 80053; 85025; 85652; 86140